=== PATIENT | male | born 1940 ===

== ENCOUNTER 2023-06-30 06:06 | Inpatient (IN) | payer OTHER ==
--- OUTSIDE RECORDS SUMMARY | 2023-06-30 06:09 | XMS REPORT | Continuity of Care Document ---
Author Name Unknown Address [address] [facility] [address] [place] [address] [facility] thconnect Address [address] [facility] [address] [place] [address] Care Team Providers Care Legal Administrative Assistant Name Role Phone Crescencio Mac Attending Clinician Unavailable Payers Payer Name Policy Type Policy Number Effective Date Expirati on Date Source [facility] [employer] TRS/ERS MCR PPO 1 [id number] [facility] Problems Condition Name Condition Details Condition Category Status Onset Date Resolution Date Last Treatment Date Treating Clinician Comments Source [id number] COPD, mild Problem Com mon [facility] [id number] History of prostate cancer Problem [facility] [id number] Essential hypertensi on Problem [facility] [id number] Obesity, Class II, BMI 35-39.9 Problem [facility] [id number] Mild episode of recurrent major depressive disorder Problem [facility] [id number] Slow transit constipati on Problem [facility] [id number] Mixed hyperlipid emia Problem [facility] [id number] Complete tear of left rotator cuff, unspecifie d whether traumatic Problem [facility] Social History Social Habit Start Date Stop Date Quantity Comments Source History of Tobacco Use [facility] Sex Assigned At [facility] Smoking Status Start Date Stop Date Source Never Smoker [facility] Medications Ordered Medication Name Filled Medication Name Start Date Stop Date Current Medication? Ordering Clinician Indication Dosage Frequency Signature (SIG) Comments Components Source Albuterol Sulfate HFA Albuterol Sulfate HFA No Albuterol Sulfate HFA Stool Softener Stool Softener No Stool Softener Magnesium Magnesium No Magnesium Niacin Niacin No Niacin Allergy Allergy No Allergy Lisinopril 40 MG Lisinopril 40 MG No 1{table t} QD Lisinopril 40 MG Simvastatin 40 MG Simvastatin 40 MG No 1{table t_in e_eveni ng} QD Simvastati n 40 MG DULoxetine HCl 30 MG DULoxetine HCl 30 MG No 1{capsu le} QD DULoxetine HCl 30 MG Vaishali Aspirin Vaishali Aspirin No Vaishali Aspirin Symbicort Symbicort No Symbicort Melatonin Melatonin No Melatonin hydroCHLORO thiazide 50 MG hydroCHLORO thiazide 50 MG No hydroCHLOR Othiazide 50 MG DULoxetine HCl 30 MG DULoxetine HCl 30 MG No 1{capsu le} QD DULoxetine HCl 30 MG Albuterol Sulfate HFA Albuterol Sulfate HFA No Albuterol Sulfate HFA hydroCHLORO thiazide 50 MG hydroCHLORO thiazide 50 MG No 1{capsu le_in_t he_morn ing} QD hydroCHLOR Othiazide 50 MG Niacin Niacin No Niacin Stool Softener Stool Softener No Stool Softener Magnesium Magnesium No Magnesium Lisinopril 40 MG Lisinopril 40 MG No 1{table t} QD Lisinopril 40 MG Simvastatin 40 MG Simvastatin 40 MG No 1{table t_in e_eveni ng} QD Simvastati n 40 MG DULoxetine HCl 30 MG DULoxetine HCl 30 MG No 1{capsu le} QD DULoxetine HCl 30 MG Vaishali Aspirin Vaishali Aspirin No Vaishali Aspirin Symbicort Symbicort No Symbicort Melatonin Melatonin No Melatonin Allergy Allergy No Allergy DULoxetine HCl 30 MG DULoxetine HCl 30 MG No 1{capsu le} QD DULoxetine HCl 30 MG Albuterol Sulfate HFA Albuterol Sulfate HFA No Albuterol Sulfate HFA hydroCHLORO thiazide 50 MG hydroCHLORO thiazide 50 MG No 1{capsu le_in_t he_morn ing} QD hydroCHLOR Othiazide 50 MG Niacin Niacin No Niacin Stool Softener Stool Softener No Stool Softener Magnesium Magnesium No Magnesium Lisinopril 40 MG Lisinopril 40 MG No 1{table t} QD Lisinopril 40 MG Simvastatin 40 MG Simvastatin 40 MG No 1{table t_in_th e_eveni ng} QD Simvastati n 40 MG DULoxetine HCl 30 MG DULoxetine HCl 30 MG No 1{capsu le} QD DULoxetine HCl 30 MG Vaishali Aspirin Vaishali Aspirin No Vaishali Aspirin Symbicort Symbicort No Symbicort Melatonin Melatonin No Melatonin Allergy Allergy No Allergy DULoxetine HCl 30 MG DULoxetine HCl 30 MG No 1{capsu le} QD DULoxetine HCl 30 MG Albuterol Sulfate HFA Albuterol Sulfate HFA No Albuterol Sulfate HFA hydroCHLORO thiazide 50 MG hydroCHLORO thiazide 50 MG No 1{capsu le_in_t he_morn ing} QD hydroCHLOR Othiazide 50 MG Niacin Niacin No Niacin Stool Softener Stool Softener No Stool Softener Magnesium Magnesium No Magnesium Lisinopril 40 MG Lisinopril 40 MG No 1{table t} QD Lisinopril 40 MG Simvastatin 40 MG Simvastatin 40 MG No 1{table t_in_th e_eveni ng} QD Simvastati n 40 MG DULoxetine HCl 30 MG DULoxetine HCl 30 MG No 1{capsu le} QD DULoxetine HCl 30 MG Vaishali Aspirin Vaishali Aspirin No Vaishali Aspirin Symbicort Symbicort No Symbicort Melatonin Melatonin No Melatonin Allergy Allergy No Allergy DULoxetine HCl 30 MG DULoxetine HCl 30 MG No 1{capsu le} QD DULoxetine HCl 30 MG Vital Signs Vital Name Observation Time Observation Value Comments S ource respiratory rate 2023-04-07 13:40:00 16 /min [facility] blood pressure systolic 2023-04-07 13:40:00 136 mm[Hg] [facility] blood pressure diastolic 2023-04-07 13:40:00 74 mm[Hg] [facility] height 2023-04-07 13:40:00 69.5 [in_i] Comm on [facility] weight 2023-04-07 13:40:00 249.6 [lb_av] Co mmon [facility] temperature 2023-04-07 13:40:00 98.2 [degF] Com mon [facility] bmi 2023-04-07 13:40:00 36.33 kg/m2 Comm on [facility] oximetry 2023-04-07 13:40:00 97 % Commo n [facility] height 2023-03-08 11:00:00 69.5 [in_i] Comm on [facility] weight 2023-03-08 11:00:00 247 [lb_av] Comm on [facility] temperature 2023-03-08 11:00:00 97.2 [degF] Com mon [facility] bmi 2023-03-08 11:00:00 35.95 kg/m2 Comm on [facility] oximetry 2023-03-08 11:00:00 97 % Commo n [facility] respiratory rate 2023-03-08 11:00:00 16 /min [facility] blood pressure systolic 2023-03-08 11:00:00 134 mm[Hg] [facility] blood pressure diastolic 2023-03-08 11:00:00 66 mm[Hg] [facility] blood pressure diastolic 2023-03-08 11:00:00 66 mm[Hg] [facility] height 2023-03-08 11:00:00 69.5 [in_i] Comm on [facility] weight 2023-03-08 11:00:00 247 [lb_av] Comm on [facility] temperature 2023-03-08 11:00:00 97.2 [degF] Com [facility] bmi 2023-03-08 11:00:00 35.95 kg/m2 Comm on [facility] oximetry 2023-03-08 11:00:00 97 % Commo n [facility] respiratory rate 2023-03-08 11:00:00 16 /min [facility] blood pressure systolic 2023-03-08 11:00:00 134 mm[Hg] Common Spiri t - [facility] Encounters Start Date/Time End Date/Time Encounter Type Admission Type Attending Clinicians Care Facility Care Department Encounter ID Source 2023-06-28 12:01:00 Out[facility] [id number] [facility] 2023-04-06 13:20:00 [facility] [id number] [facility] 2023-04-05 09:01:01 [facility] [id number] [facility] 2023-03-08 09:45:01 [facility] [id number] [facility] 2023-06-07 00:00:00 2023-06-07 00:00:00 [facility] [id number] [facility] 2023-04-07 00:00:00 2023-04-07 00:00:00 OFFICE VISIT ESTAB PT LEVEL 4 [facility] [id number] [facility] 2023-03-08 00:00:00 2023-03-08 00:00:00 OFFICE VISIT NEW PT LEVEL 4 [facility] [id number] [facility] 2023-03-08 00:00:00 2023-03-08 00:00:00 SUB ANNUAL [facility] [id number] [facility] Results Test Description Test Time Test Comments Results Result Co mments Source LIPID [id number] 00:00:00* Test Item Value Reference Range Interpretation Comme nts CALC LDL CHOL (test code = 83131-7) 95 MG/DL See_Comment [Automated [employer]] The system which generated this result transmitted reference range: <100 MG/DL. The reference range was not used to interpret this result as normal/abnormal. CHOLESTEROL (test code = 2093-3) 156 MG/DL See_Comment [Automated [employer]] The system which generated this result transmitted reference range: <200 MG/DL. The reference range was not used to interpret this result as normal/abnormal. HDL CHOLESTEROL (test code = 2085-9) 41 MG/DL See_Comment [Automated [employer]] The system which generated this result transmitted reference range: >39 MG/DL. The reference range was not used to interpret this result as normal/abnormal. RISK RATIO LDL/HDL (test code = 72537-8) 2.32 RATIO See_Comment [Automated message] The system which generated this result transmitted reference range: <3.55 RATIO. The reference range was not used to interpret this result as normal/abnormal. TRIGLYCERIDES (test code = 2571-8) 100 MG/DL See_Comment [Automated [employer]] The system which generated this result transmitted reference range: <150 MG/DL. The reference range was not used to interpret this result as normal/abnormal. ALBUMIN/CREATININE RATIO, RANDOM [id number] 00:00:00* Test Item Value Reference Range Interpretation Comme nts ALBUMIN, URINE, RANDOM (test code = 83551-0) <0.2 MG/DL NOT ESTAB MG/DL CALC ALBUMIN/CREAT, RND (test code = 96454-8) <2 MG/G See_Comment [Automated [employer]] The system which generated this result transmitted reference range: <30 MG/G. The reference range was not used to interpret this result as normal/abnormal. CREATININE, URINE, CONC. (test code = 2161-8) 106.5 MG/DL NOT ESTAB MG/DL COMPREHENSIVE METABOLIC [id number] 00:00:00* Test Item Value Reference Range Interpretation Comme nts ALBUMIN (test code = 1751-7) 4.4 G/DL See_Comment [Automated [employer]] The system which generated this result transmitted reference range: 3.5-5.2 G/DL. The reference range was not used to interpret this result as normal/abnormal. ALKALINE PHOSPHATASE (test code = 6768-6) 62 U/L See_Comment [Automated message] The system which generated this result transmitted reference range: 40-125 U/L. The reference range was not used to interpret this result as normal/abnormal. BILIRUBIN, TOTAL (test code = 1975-2) 0.4 MG/DL See_Comment [Automated message] The system which generated this result transmitted reference range: <=1.2 MG/DL. The reference range was not used to interpret this result as normal/abnormal. BUN (test code = 3094-0) 12 MG/DL See_Comment [Automated messa ge] The system which generated this result transmitted reference range: 8-23 MG/DL. The reference range was not used to interpret this result as normal/abnormal. CALCIUM (test code = 41855-8) 9.8 MG/DL See_Comment [Automated messa ge] The system which generated this result transmitted reference range: 8.5-10.5 MG/DL. The reference range was not used to interpret this result as normal/abnormal. CALC A/G RATIO (test code = 1759-0) 1.8 RATIO See_Comment [Automated messa ge] The system which generated this result transmitted reference range: 1.0-2.6 RATIO. The reference range was not used to interpret this result as normal/abnormal. CALC BUN/CREAT (test code = 3097-3) 12 RATIO See_Comment [Automated messa ge] The system which generated this result transmitted reference range: 6-28 RATIO. The reference range was not used to interpret this result as normal/abnormal. CALC GLOBULIN (test code = 11991-5) 2.5 G/DL See_Comment [Automated messa ge] The system which generated this result transmitted reference range: 1.9-3.7 G/DL. The reference range was not used to interpret this result as normal/abnormal. CARBON DIOXIDE (test code = 1963-8) 28 MEQ/L See_Comment [Automated messa ge] The system which generated this result transmitted reference range: 19-31 MEQ/L. The reference range was not used to interpret this result as normal/abnormal. CHLORIDE (test code = 2075-0) 100 MEQ/L See_Comment [Automated messa ge] The system which generated this result transmitted reference range: 95-107 MEQ/L. The reference range was not used to interpret this result as normal/abnormal. CREATININE (test code = 2160-0) 1.00 MG/DL See_Comment [Automated messa ge] The system which generated this result transmitted reference range: 0.80-1.40 MG/DL. The reference range was not used to interpret this result as normal/abnormal. eGFR (2020 CKD-EPI) (test code = 60245-6) 76 ML/MIN/1.73 See_Comment [Automated messa ge] The system which generated this result transmitted reference range: >60 ML/MIN/1.73. The reference range was not used to interpret this result as normal/abnormal. GLUCOSE (test code = 1558-6) 113 MG/DL See_Comment H [Automated messa ge] The system which generated this result transmitted reference range: 70-99 MG/DL. The reference range was not used to interpret this result as normal/abnormal. POTASSIUM (test code = 2823-3) 4.4 MEQ/L See_Comment [Automated messa ge] The system which generated this result transmitted reference range: 3.5-5.4 MEQ/L. The reference range was not used to interpret this result as normal/abnormal. PROTEIN, TOTAL (test code = 2885-2) 6.9 G/DL See_Comment [Automated messa ge] The system which generated this result transmitted reference range: 6.1-8.3 G/DL. The reference range was not used to interpret this result as normal/abnormal. AST (test code = 1920-8) 19 U/L See_Comment [Automated messa ge] The system which generated this result transmitted reference range: 9-50 U/L. The reference range was not used to interpret this result as normal/abnormal. ALT (test code = 1742-6) 17 U/L See_Comment [Automated messa ge] The system which generated this result transmitted reference range: 5-50 U/L. The reference range was not used to interpret this result as normal/abnormal. SODIUM (test code = 2951-2) 141 MEQ/L See_Comment [Automated messa ge] The system which generated this result transmitted reference range: 133-146 MEQ/L. The reference range was not used to interpret this result as normal/abnormal.
[2023-06-30] MEDS ORDERED: ONDANSETRON 4 MG/2 ML VIAL ONE (06:30)
[2023-06-30 06:54] LABS: Absolute Basophils 0.1 K/uL (0-0.5); Absolute Lymphocytes (CBC) 2.1 K/uL (0.7-4.9); Basophils % 0.3 % (0-1.3); Eosinophils % 0.1 % (0-4.4); Hematocrit 44.6 % (39.6-49.0); Lymphocytes % 12.2 % (15.3-44.8); MCV 93.8 fL (80-100); MPV 8.2 fL (7.6-11.3); Platelets 233 thou/uL (152-406); RBC Red Blood Cell Count 4.75 M/uL (4.33-5.43)
[2023-06-30 07:08] LABS: Protime INR 0.97
[2023-06-30] MEDS ORDERED: METOCLOPRAMIDE 10 MG/2mL INJ ONE (07:09)
[2023-06-30] MEDS ORDERED: MORPHINE 4 MG/ML SYR ONE ×3 (07:09→13:23)
[2023-06-30] MEDS ORDERED: NA CHLORIDE 0.9% 1,000 ML ONE ×2 (07:10→17:37)
[2023-06-30] MEDS ORDERED: FAMOTIDINE 20 MG/2 ML VIAL IV ONE (07:10)
[2023-06-30 07:14] LABS: Albumin 3.8 g/dL (3.4-5.0); Albumin/Globulin Ratio 1.1 (1.1-1.8); Anion Gap 11.6 mEq/L (5.0-15.0); Bilirubin Direct 0.2 mg/dL (0-0.2); Bilirubin Indirect, Calculated 0.3 mg/dL (0.2-0.8); Bilirubin Total 0.5 mg/dL (0.2-1.0); Globulin 3.5 g/dL (2.3-3.5); Magnesium 2.5 mg/dL (1.6-2.4); Potassium 3.6 mEq/L (3.5-5.1); Protein, Total 7.3 g/dL (6.4-8.2); Troponin High Sensitivity 22.7 pg/mL (<58.9)
--- NOTE | 2023-06-30 07:53 | RAD REPORT ---
EXAM DESCRIPTION: Yuan Single View06/30/2023 6:50 am CLINICAL HISTORY: Chest pain COMPARISON: none FINDINGS: The lungs appear clear of acute infiltrate. The heart is normal size IMPRESSION: No acute abnormalities displayed
--- NOTE | 2023-06-30 08:01 | RAD REPORT ---
EXAM DESCRIPTION: CT - Chest Abdomen Pelvis W Cont - 06/30/2023 7:39 am CLINICAL HISTORY: Chest and abdominal pain COMPARISON: none TECHNIQUE: Computed axial tomography of the chest, abdomen and pelvis was obtained. 100 cc Isovue-30 0 was administered intravenously. Oral contrast was not requested. This limits evaluation of bowel. All CT scans are performed using dose optimization technique as appropriate and may include automated exposure control or mA/KV adjustment according to patient size. FINDINGS: The lungs are clear No mediastinal or hilar lymphadenopathy. No pleural effusion. No pericardial effusion. Pancreas is normal size. Moderate peripancreatic stranding with small amount of ill-defined fluid ext extending into the left anterior pararenal space. No pseudocysts. No evidence of diverticulitis normal appendix. Left hip prosthesis. Penile implant. IMPRESSION: Moderate pancreatitis
--- NOTE | 2023-06-30 08:12 | ER ---
Nurse's Notes [facility] Name: Elpidio Wong Age: 82 yrs Sex: Male : 1940 Arrival Date: 06/30/2023 Time: 06:06 Bed 4 Private MD: Diagnosis: Acute pancreatitis without necrosis or infection, unspecified Presentation: 06/29 06:45 Chief complaint: Patient states: I couldn't sleep on my back last night, my stomach vc1 hurts and I'm nauseous. I've had the hiccups and I'm constipated. My stomach is swollen and sticking out. Coronavirus screen: Vaccine status: Patient reports receiving the 2nd dose of the covid vaccine. Client denies travel out of the [place] in the last 14 days. At this time, the client does not indicate any symptoms associated with coronavirus-19. Ebola Screen: Patient negative for fever greater than or equal to 101.5 degrees Fahrenheit, and additional compatible Ebola Virus Disease symptoms Patient denies exposure to infectious person. Patient denies travel to an Ebola-affected area in the 21 days before illness onset. No symptoms or risks identified at this time. Initial Sepsis Screen: Does the patient meet any 2 criteria? No. Patient's initial sepsis screen is negative. Does the patient have a suspected source of infection? No. Patient's initial sepsis screen is negative. Risk Assessment: Do you want to hurt yourself or someone else? Patient reports no desire to harm self or others. Onset of symptoms was June 29, 2023. 06:45 Method Of Arrival: Ambulatory vc1 06:45 Acuity: RHODA 3 vc1 Triage Assessment: 06:56 General: Appears in no apparent distress. uncomfortable, Behavior is calm, cooperative, vc1 appropriate for age. Pain: Complains of pain in abdomen Pain does not radiate. Pain currently is 7 out of 10 on a pain scale. Quality of pain is described as pressure, Pain began suddenly, Is continuous, Noted to be guarding, resistant to movement, Also complains of constipation, nausea. EENT: No deficits noted. No signs and/or symptoms were reported regarding the EENT system. Neuro: Level of Consciousness is awake, alert, obeys commands, Oriented to person, place, time, situation, Appropriate for age. Cardiovascular: No deficits noted. Respiratory: Airway is patent Respiratory effort is even, unlabored, Respiratory pattern is regular, symmetrical, Breath sounds are clear. GI: Abdomen is round distended, Bowel sounds present X 4 quads. hypoactive in right upper quadrant, left upper quadrant, right lower quadrant and left lower quadrant Abd is soft Abdomen is tender to palpation X 4 quads. GI: Patient currently denies vomiting. : No deficits noted. No signs and/or symptoms were reported regarding the genitourinary system. :. Derm: No deficits noted. No signs and/or symptoms reported regarding the dermatologic system. Musculoskeletal: No deficits noted. No signs and/or symptoms reported regarding the musculoskeletal system. Historical: - Allergies: 07:52 Dilaudid; kc6 - Home Meds: 06:49 Hydrochlorothiazide Oral [Active]; Lisinopril Oral [Active]; Simvastatin Oral [Active]; vc1 2 inhalers [Active]; - PMHx: 06:49 Hypertensive disorder; Hypercholesterolemia; Chronic obstructive lung disease; Sleep vc1 apnea; - PSHx: 06:49 Radical Prostatectomy; Total right knee replacement; Left hip replacement; vc1 - Immunization history:: Client reports receiving the 2nd dose of the Covid vaccine, Pneumococcal vaccine is up to date, Flu vaccine is up to date. - Social history:: Smoking status: Patient/guardian denies using tobacco, but has a distant history of tobacco abuse. - Family history:: not pertinent. Screenin:49 Abuse screen: Denies threats or abuse. Denies injuries from another. Nutritional ha1 screening: No deficits noted. Tuberculosis screening: No symptoms or risk factors identified. 06:56 [facility] ED Fall Risk Assessment (Adult) History of falling in the last 3 months, vc1 including since admission No falls in past 3 months (0 pts) Confusion or Disorientation No (0 pts) Intoxicated or Sedated No (0 pts) Impaired Gait No (0 pts) Mobility Assist Device Used No (0 pt) Altered Elimination No (0 pt) Score/Fall Risk Level 0 - 2 = Low Risk Oriented to surroundings, Maintained a safe environment, Educated pt \T\ family on fall prevention, incl call for assistance when getting out of bed. Assessment: 06:28 General: Appears uncomfortable, Behavior is cooperative, anxious. Pain: Complains of ha1 pain in abdomen Pain does not radiate. Pain currently is 8 out of 10 on a pain scale. Quality of pain is described as throbbing. Neuro: Level of Consciousness is awake, alert, obeys commands, Oriented to person, place, time, situation. Cardiovascular: Capillary refill < 3 seconds Patient's skin is warm and dry. Respiratory: Airway is patent Respiratory effort is even, unlabored, Respiratory pattern is regular, symmetrical. GI: Bowel sounds present X 4 quads. Abdomen is tender to palpation in umbilical area. GI: Reports lower abdominal pain, upper abdominal pain, epigastric pain, nausea, vomiting. Derm: Skin is pink, warm \T\ dry. Musculoskeletal: Circulation, motion, and sensation intact. 07:23 General: Appears in no apparent distress. uncomfortable, well groomed, well developed, kc6 Behavior is calm, cooperative, appropriate for age. Pain: Complains of pain in abdomen. Neuro: Level of Consciousness is awake, alert, obeys commands, Oriented to person, place, time, situation, Appropriate for age. Cardiovascular: Capillary refill < 3 seconds. Respiratory: Airway is patent Trachea midline Respiratory effort is even, unlabored, Respiratory pattern is regular, symmetrical. GI: Abdomen is round non-distended, Bowel sounds present X 4 quads. Abd is soft X 4 quads Reports nausea, vomiting, Patient currently denies diarrhea. : No signs and/or symptoms were reported regarding the genitourinary system. EENT: No signs and/or symptoms were reported regarding the EENT system. Derm: No signs and/or symptoms reported regarding the dermatologic system. Skin is intact, is healthy with good turgor, Skin is pink, warm \T\ dry. Musculoskeletal: No signs and/or symptoms reported regarding the musculoskeletal system. Circulation, motion, and sensation intact. Capillary refill < 3 seconds, Range of motion: intact in all extremities. 08:23 Reassessment: Patient appears in no apparent distress at this time. No changes from kc6 previously documented assessment. Patient and/or family updated on plan of care and expected duration. Pain level reassessed. Patient is alert, oriented x 3, equal unlabored respirations, skin warm/dry/pink. 09:23 Reassessment: Patient appears in no apparent distress at this time. No changes from kc6 previously documented assessment. Patient and/or family updated on plan of care and expected duration. Pain level reassessed. Patient is alert, oriented x 3, equal unlabored respirations, skin warm/dry/pink. 10:23 Reassessment: Patient appears in no apparent distress at this time. No changes from kc6 previously documented assessment. Patient and/or family updated on plan of care and expected duration. Pain level reassessed. Patient is alert, oriented x 3, equal unlabored respirations, skin warm/dry/pink. please see [facility] for further charting. Vital Signs: 06:45 BP 175 / 68; Pulse 60; Resp 18; Temp 98; Pulse Ox 98% ; Weight 113.4 kg; Height 5 ft. 9 vc1 in. ; Pain 7/10; 07:24 BP 174 / 57; Pulse 55; Resp 16 S; Pulse Ox 98% on R/A; kc6 07:53 BP 171 / 64; Pulse 58; Resp 16 S; Pulse Ox 97% on R/A; Pain 9/10; kc6 08:53 BP 143 / 54; Pulse 55; Resp 17 S; Pulse Ox 95% on R/A; kc6 10:58 BP 162 / 57; Pulse 62; Resp 16 S; Pulse Ox 95% on R/A; kc6 19:53 BP 169 / 76; Pulse 85; Resp 17; Pulse Ox 93% ; jj7 06:45 Body Mass Index 36.92 (113.40 kg, 175.26 cm) vc1 06:45 Pain Scale: Adult vc1 07:53 Pain Scale: Adult kc6 Kylie Coma Score: 06:53 Eye Response: spontaneous(4). Motor Response: obeys commands(6). Verbal Response: sp4 oriented(5). Total: 15. ED Course: 06:11 Patient arrived in ED. gm2 06:20 Sarthak Vaughan MD is Attending Physician. sp4 06:40 Inserted saline lock: 20 gauge in right antecubital area, using aseptic technique. ha1 Blood collected. 06:49 Triage completed. vc1 06:51 XRAY Chest (1 view) In Process Unspecified. EDMS 06:55 Arm band placed on left wrist. vc1 06:55 Patient has correct armband on for positive identification. Bed in low position. Call vc1 light in reach. Pulse ox on. NIBP on. 07:00 Report received from ELSA Flannery. kc6 07:01 Attending Physician role handed off by Sarthak Vaughan MD ec2 07:01 Alonzo Moreira MD is Attending Physician. ec2 07:22 Shala Biggs RN is Primary Nurse. kc6 07:41 CT Chest, Abdomen, Pelvis - W/Contrast In Process Unspecified. EDMS 08:11 Stormy Garcia MD is Hospitalizing Provider. ec2 10:18 Urine collected: clean catch specimen, clear. jg11 10:59 No provider procedures requiring assistance completed. Patient admitted, IV remains in kc6 place. Patient maintains SpO2 saturation greater than 95% on room air. 20:14 Primary Nurse role handed off by Shala Biggs RN cm10 21:00 Provided Education on: need for admission. tm6 Administered Medications: 06:38 Drug: Ondansetron IVP 4 mg IVP once; over 2 minutes Route: IVP; Site: right antecubital;ha1 07:00 Follow up: Response: No adverse reaction; Nausea unchanged [facility] 07:22 Drug: morphine IVP or IV 4 mg IVP once over 4 mins Route: IVP; Infused Over: 4 mins; [facility] Site: right forearm; 07:44 Follow up: Response: No adverse reaction; Pain is unchanged, physician notified; RASS: [facility] Alert and Calm (0) 07:22 Drug: metoCLOPramide IVP 10 mg IVP once; over 1 to 2 minutes Route: IVP; Site: right kc6 forearm; 07:44 Follow up: Response: No adverse reaction; Nausea is decreased; Vomiting decreased [facility] 07:23 Drug: NS 0.9% IV 1000 ml IV at 125 ml/hr continuous Route: IV; Rate: 125 ml/hr; Site: [facility] right forearm; 10:58 Follow up: Response: No adverse reaction; IV Status: Infusion continued upon admission [facility] 07:23 Drug: Famotidine IVP 20 mg IVP once; dilute with 10 mL 0.9% NaCl; give over 2 minutes [facility] Route: IVP; Site: right forearm; 07:44 Follow up: Response: No adverse reaction [facility] 07:52 Drug: morphine IVP or IV 8 mg IVP once over 4 mins Route: IVP; Infused Over: 4 mins; [facility] Site: right forearm; 08:54 Follow up: Response: No adverse reaction; Pain is decreased; RASS: Alert and Calm (0) kc6 Medication: 06:55 VIS not applicable for this client. vc1 Outcome: 08:12 Decision to Hospitalize by Provider. ec2 10:59 Admitted to ER Hold. Please see [facility] for further documentation. kc6 10:59 Condition: good 10:59 Instructed on the need for admit, 20:09 Admitted to Med/surg accompanied by tech, room 225, Report called to MARILU HUNTER jj7 21:00 Patient left the ED. tm6 Signatures: Dispatcher [employer] Ana Lilia Ceballos RN RN vc1 Love Bryant RN RN ha1 Shala Biggs RN RN kc6 Anika Stephenson RN RN jj7 Sarthak Vaughan MD MD sp4 Noy Raphael RN RN cm10 Alonzo Moreira MD MD ec2 Lakeshia Garcia gm2 Lashae Rosas RN RN tm6 Christian Moreira [email or web address] Corrections: (The following items were deleted from the chart) 06:55 06:49 PSHx: total left knee replacement; vc1 vc1 07:52 06:49 Allergies: No Known Allergies; vc1 kc6
--- NOTE | 2023-06-30 08:12 | EDPHYS ---
Physician Documentation [facility] Name: Elpidio Wong Age: 82 yrs Sex: Male : 1940 Arrival Date: 06/30/2023 Time: 06:06 Bed 4 Private MD: ED Physician Alonzo Moreira HPI: 06/29 06:20 This 82 yrs old Male presents to ER via Unassigned with complaints of sp4 Abdominal Pain, Nausea/Vomiting, PT IS VERY RED FACE. 06:53 82-year-old male presents with acute onset of nausea and upper abdominal pain in sp4 epigastric location that woke him up from his sleep 2 hours ago. Patient states he has history of radical prostatectomy. Denied any vomiting. Reported moderate to severe upper abdominal epigastric pain. Reports he drinks alcohol up to 4 beers a day. History of COPD on albuterol inhaler, history of CPAP with obstructive sleep apnea, history of hypertension on hydrochlorothiazide lisinopril and Crestor. History of right knee replacement , and left hip arthroplasty. Historical: - Allergies: 07:52 Dilaudid; kc6 - Home Meds: 06:49 Hydrochlorothiazide Oral [Active]; Lisinopril Oral [Active]; Simvastatin Oral [Active]; vc1 2 inhalers [Active]; - PMHx: 06:49 Hypertensive disorder; Hypercholesterolemia; Chronic obstructive lung disease; Sleep vc1 apnea; - PSHx: 06:49 Radical Prostatectomy; Total right knee replacement; Left hip replacement; vc1 - Immunization history:: Client reports receiving the 2nd dose of the Covid vaccine, Pneumococcal vaccine is up to date, Flu vaccine is up to date. - Social history:: Smoking status: Patient/guardian denies using tobacco, but has a distant history of tobacco abuse. - Family history:: not pertinent. ROS: 06:53 Constitutional: Negative for fever, chills, and weight loss, presented for abdominal sp4 pain and nausea 06:53 All other systems are negative, Exam: 06:53 Constitutional: This is a well developed, well nourished patient who is awake, alert, sp4 healthy moderate distress secondary to pain Head/Face: Normocephalic, atraumatic. Eyes: Pupils equal round and reactive to light, extra-ocular motions intact. Lids and lashes normal. Conjunctiva and sclera are not injected. Cornea within normal limits. Periorbital areas with no swelling, redness, or edema. ENT: Nares patent. No nasal discharge, no septal abnormalities noted. Tympanic membranes are normal and external auditory canals are clear. Oropharynx with no redness, swelling, or masses, exudates, or evidence of obstruction, uvula midline. Mucous membranes moist. Neck: Trachea midline, no thyromegaly or masses palpated, and no cervical lymphadenopathy. Supple, full range of motion without nuchal rigidity, or vertebral point tenderness. Chest/axilla: Normal chest wall appearance and motion. Nontender with no deformity. No lesions are appreciated. Cardiovascular: Regular rate and rhythm with a normal S1 and S2. No gallops, murmurs, or rubs. Normal PMI, no JVD. No pulse deficits. Respiratory: Lungs have equal breath sounds bilaterally, clear to auscultation and percussion. No rales, rhonchi or wheezes noted. No increased work of breathing, no retractions or nasal flaring. Abdomen/GI: Soft, with normal bowel sounds. No distension or tympany. No guarding or rebound. Acute upper abdominal tenderness. Positive rebound. Back: No spinal tenderness. No costovertebral tenderness. Skin: Warm, dry with normal turgor. Normal color with no rashes, no lesions, and no evidence of cellulitis. MS/ Extremity: Pulses equal, no cyanosis. Neurovascular intact. Full, normal range of motion. Neuro: Awake and alert, GCS 15, oriented to person, place, time, and situation. Cranial nerves II-XII grossly intact. Motor strength 5/5 in all extremities. Sensory grossly intact. Psych: Awake, alert, with orientation to person, place and time. Behavior, mood, and affect are within normal limits Vital Signs: 06:45 BP 175 / 68; Pulse 60; Resp 18; Temp 98; Pulse Ox 98% ; Weight 113.4 kg; Height 5 ft. 9 vc1 in. ; Pain 7/10; 07:24 BP 174 / 57; Pulse 55; Resp 16 S; Pulse Ox 98% on R/A; kc6 07:53 BP 171 / 64; Pulse 58; Resp 16 S; Pulse Ox 97% on R/A; Pain 9/10; kc6 08:53 BP 143 / 54; Pulse 55; Resp 17 S; Pulse Ox 95% on R/A; kc6 10:58 BP 162 / 57; Pulse 62; Resp 16 S; Pulse Ox 95% on R/A; kc6 19:53 BP 169 / 76; Pulse 85; Resp 17; Pulse Ox 93% ; jj7 06:45 Body Mass Index 36.92 (113.40 kg, 175.26 cm) vc1 06:45 Pain Scale: Adult vc1 07:53 Pain Scale: Adult kc6 Kylie Coma Score: 06:53 Eye Response: spontaneous(4). Motor Response: obeys commands(6). Verbal Response: sp4 oriented(5). Total: 15. MDM: 06:22 Patient medically screened. sp4 06:58 Differential diagnosis: Nonspecific abd pain, gastritis, cholecystitis, pancreatitis, sp4 appendicitis, diverticulitis, viral gastroenteritis, gastroenteritis. Data reviewed: vital signs, nurses notes, old medical records, lab test result(s), EKG, radiologic studies. ED course: Patient was given medications for pain control. CT ordered . 07:00 Transition of care: After a detail discussion of the patient's case, care is sp4 transferred to Alonzo Moreira MD. 07:01 Transition of care: Care assumed from Sarthak Vaughan MD. ED course: Patient arrives ec2 today for upper abdominal pain, patient send operative intervention, plan to follow-up lab work and CT imaging.. 07:21 ED course: Metabolic profile is reassuring, CBC shows leukocytosis 17.2. Liver profile ec2 unremarkable, lipase elevation at 1200. Troponin within normal ranges. . 08:11 ED course: Chest x-ray shows no acute intrathoracic process. CT imaging shows ec2 pancreatitis. CRP within normal ranges, alcohol undetectable. Will admit for pancreatitis, pain management. Discussed case with hospitalist, pending admission . 06/29 06:21 Order name: Basic Metabolic Panel; Complete Time: 07:20 sp4 06/29 06:21 Order name: CBC with Diff; Complete Time: 07:20 sp4 06/29 06:21 Order name: LFT's; Complete Time: 07:20 sp4 06/29 06:21 Order name: Magnesium; Complete Time: 07:20 sp4 06/29 06:21 Order name: NT PRO-BNP; Complete Time: 07:20 sp4 06/29 06:21 Order name: PT-INR; Complete Time: 07:20 sp4 06/29 06:21 Order name: Troponin HS; Complete Time: 07:20 sp4 06/29 06:21 Order name: Lipase; Complete Time: 07:20 sp4 06/29 06:50 Order name: CRP; Complete Time: 08:10 sp4 06/29 06:50 Order name: Urinalysis w/ reflexes sp4 06/29 06:50 Order name: Alcohol Level; Complete Time: 08:10 sp4 06/29 10:19 Order name: Lipid Profile EDMS 03/07 10:19 Order name: Basic Metabolic Panel EDMS 03/07 10:19 Order name: Basic Metabolic Panel EDMS 03/07 10:19 Order name: Basic Metabolic Panel EDMS 03/07 10:19 Order name: Basic Metabolic Panel EDMS 03/07 10:19 Order name: Basic Metabolic Panel EDMS 03/07 10:19 Order name: Basic Metabolic Panel EDMS 03/07 10:19 Order name: CBC with Automated Diff EDMS 03/07 10:19 Order name: CBC with Automated Diff EDMS 03/07 10:19 Order name: CBC with Automated Diff EDMS 03/07 10:19 Order name: CBC with Automated Diff EDMS 03/07 10:19 Order name: CBC with Automated Diff EDMS 03/07 10:19 Order name: CBC with Automated Diff EDMS 03/07 10:19 Order name: Lipase EDMS 03/07 10:19 Order name: Lipase EDMS 03/07 10:19 Order name: Lipase EDMS 03/07 10:19 Order name: Lipase EDMS 03/07 10:19 Order name: Lipase EDMS 03/07 10:19 Order name: Lipase EDMS 03/07 10:19 Order name: Magnesium EDMS 03/07 10:19 Order name: Magnesium EDMS 03/07 10:19 Order name: Magnesium EDMS 03/07 10:19 Order name: Magnesium EDMS 03/07 10:19 Order name: Magnesium EDMS 03/07 10:19 Order name: Magnesium EDMS 03/07 10:19 Order name: NT PRO-BNP EDMS 03/07 10:19 Order name: NT PRO-BNP EDMS 03/07 10:19 Order name: NT PRO-BNP EDMS 03/07 10:19 Order name: NT PRO-BNP EDMS 03/07 10:19 Order name: NT PRO-BNP EDMS 06/29 10:19 Order name: NT PRO-BNP EDMS 06/29 06:21 Order name: XRAY Chest (1 view); Complete Time: 08:10 sp4 06/29 06:21 Order name: CT Chest, Abdomen, Pelvis - W/Contrast; Complete Time: 08:10 sp4 06/29 06:21 Order name: EKG; Complete Time: 06:21 sp4 06/29 06:21 Order name: Cardiac monitoring; Complete Time: 06:58 sp4 06/29 06:21 Order name: EKG - Nurse/Tech; Complete Time: 06:58 sp4 06/29 06:21 Order name: IV Saline Lock; Complete Time: 06:38 sp4 06/29 06:21 Order name: Labs collected and sent; Complete Time: 06:38 sp4 06/29 06:21 Order name: O2 Per Protocol; Complete Time: 06:38 sp4 06/29 06:21 Order name: O2 Sat Monitoring; Complete Time: 06:38 sp4 Administered Medications: 06:38 Drug: Ondansetron IVP 4 mg IVP once; over 2 minutes Route: IVP; Site: right antecubital;ha1 07:00 Follow up: Response: No adverse reaction; Nausea unchanged kc6 07:22 Drug: morphine IVP or IV 4 mg IVP once over 4 mins Route: IVP; Infused Over: 4 mins; kc6 Site: right forearm; 07:44 Follow up: Response: No adverse reaction; Pain is unchanged, physician notified; RASS: kc6 Alert and Calm (0) 07:22 Drug: metoCLOPramide IVP 10 mg IVP once; over 1 to 2 minutes Route: IVP; Site: right kc6 forearm; 07:44 Follow up: Response: No adverse reaction; Nausea is decreased; Vomiting decreased kc6 07:23 Drug: NS 0.9% IV 1000 ml IV at 125 ml/hr continuous Route: IV; Rate: 125 ml/hr; Site: kc6 right forearm; 10:58 Follow up: Response: No adverse reaction; IV Status: Infusion continued upon admission kc6 07:23 Drug: Famotidine IVP 20 mg IVP once; dilute with 10 mL 0.9% NaCl; give over 2 minutes kc6 Route: IVP; Site: right forearm; 07:44 Follow up: Response: No adverse reaction kc6 07:52 Drug: morphine IVP or IV 8 mg IVP once over 4 mins Route: IVP; Infused Over: 4 mins; kc6 Site: right forearm; 08:54 Follow up: Response: No adverse reaction; Pain is decreased; RASS: Alert and Calm (0) kc6 Disposition Summary: 06/30/23 08:12 Hospitalization Ordered Notes: Hospitalization Status: Inpatient Admission ec2 Provider: Stormy Garcia ec2 Condition: Stable ec2 Problem: new ec2 Symptoms: have improved ec2 Bed/Room Type: Standard ec2 Location: Telemetry/MedSurg (Inpatient)(06/30/23 18:40) Room Assignment: [facility](06/30/23 19:13) Diagnosis - Acute pancreatitis without necrosis or infection, unspecified ec2 Forms: - Medication Reconciliation Form ec2 - SBAR form ec2 - Leadership Thank You Letter ec2 Signatures: Dispatcher [employer] EDTianna Martinez RN RN Rachael Squires RN RN dw Calcote, Vanessa, RN RN 1 Love Bryant RN RN Shala Mahoney RN RN kc6 Sylvia Beverly RN RN [email or web address] Sarthak Vaughan MD MD sp4 Alonzo Moreira MD MD ec2 Corrections: (The following items were deleted from the chart) 06:55 06:49 PSHx: total left knee replacement; vc1 vc1 07:52 06:49 Allergies: No Known Allergies; vc1 kc6 10:39 08:12 Telemetry/MedSurg (Inpatient) ec2 kb3 10:39 08:12 ec2 kb3 18:40 10:39 [facility] ER HOLD kb3 dw 18:40 10:39 ERHOLD- kb3 dw 19:13 18:[address] [place] [id number]
[2023-06-30] MEDS: FOLIC ACID 1 MG, MULTIVITAMINS INJ 10 ML, THIAMINE HCL 100 MG in NA CHLORIDE 0.9% 1,000 ML IV SCH (09:00)
--- NOTE | 2023-06-30 09:04 | P.HP ---
Certification for Inpatient Patient admitted to: Observation With expected LOS: <2 Midnights <DivineBee - Last Filed: 06/30/23 18:42> Patient History Date of Service: 06/30/23 Reason for admission: Abdominal pain, nausea vomiting History of Present Illness: 82-year-old male with a past medical history of hypertension, hyperlipidemia, COPD, sleep apnea, presents to the emergency room with abdominal pain, nausea vomiting. He reports drinking about 6 or 7 beers daily, over the last year. He reports moderate amount of stress from moving. is at bedside, no reported fever, dizziness, edema, chest pain, shortness of breath. Plan to admit for alcohol acute pancreatitis, Home medications list reviewed: Yes - Past Medical/Surgical History -: Hypertension -: Hyperlipidemia -: Sleep apnea -: COPD -: Total knee replacement -: Radical prostatectomy -: Left hip replacement - Social History Smoking Status: Former smoker Alcohol use: Yes Place of Residence: Home <Bee Haskins - Last Filed: 06/30/23 18:42> Date of Service: 07/01/23 <Stormy Garcia - Last Filed: 07/01/23 13:10> Allergies hydromorphone [From Dilaudid] Adverse Reaction (Intermediate, Verified 06/30/23 10:47) HALLUCINATIONS Review of Systems Per HPI <Bee Haskins - Last Filed: 06/30/23 18:42> Physical Examination - Physical Exam General: Alert, In no apparent distress, Oriented x3 HEENT: Atraumatic, Normocephalic Neck: Supple, JVD not distended Cardiovascular: No edema, Normal pulses, Regular rate/rhythm Gastrointestinal: Normal bowel sounds, Tenderness (Epigastric, generalized abdominal tenderness, no rebound) Musculoskeletal: No clubbing, No swelling Integumentary: No breakdown, No significant lesion Neurological: Normal speech, Normal strength at 5/5 x4 extr Lymphatics: Axilla lymphadenopathy - Studies Laboratory Data (last 24 hrs) 06/30/23 06/30/23 06/30/23 06:45 06:45 06:45 WBC 17.20 H Hgb 15.2 Hct 44.6 Plt Count 233 PT 10.7 INR 0.97 Sodium 137 Potassium 3.6 BUN 24 H Creatinine 1.23 Glucose 138 H Magnesium 2.5 H Total Bilirubin 0.5 AST 14 L ALT 25 Alkaline Phosphatase 66 Lipase 1197 H <Bee Haskins - Last Filed: 06/30/23 18:42> Assessment and Plan - Plan Assessment plan Acute alcoholic pancreatitis Leukocytosis IV fluids, as needed analgesics, Trend lipase 1197 Lipid panel Elevated BNP BNP 604 Lasix ordered twice daily Daily BMP Acute kidney BUN 24 creatinine 1.23 IV fluids, monitor kidney function, gentle IV fluid EtOH use CIWA protocol, as needed Ativan Hypertension Hyperlipidemia Resume home medications, as needed antihypertensives BP 175 / 68; Pulse 60; Resp 18; Temp 98; Pulse Ox 98% ; Weight 113.4 kg; Height 5 ft. 9 v Full code Diet n.p.o. DVT Lovenox Disposition Home with spouse Discharge Plan: Home - Advance Directives Does patient have a Living Will: No Does patient have a Durable POA for Healthcare: No - Code Status/Comfort Care Code Status: Full Code Critical Care: No Time Spent Managing Pts Care (In Minutes): 55 <Bee Haskins - Last Filed: 06/30/23 18:42> Date of Service: 06/30/23 Patient chart was reviewed and patient was seen and examined. Patient with acute pancreatitis secondary to alcohol abuse. Continue with n.p.o. status along with IV fluids. Continue with Librium and pain control. Will monitor patient's hemodynamics closely. Strict blood pressure control. <Stormy Garcia - Last Filed: 07/01/23 13:10>
[2023-06-30] MEDS ORDERED: FLUMAZENIL 0.1 MG/ML (5 mL VIAL) IV PRN (09:06)
[2023-06-30] MEDS ORDERED: LORazepam 2 MG/ML VIAL IV PRN (09:08)
[2023-06-30] MEDS ORDERED: ONDANSETRON 4 MG/2 ML VIAL IV PRN (10:16)
[2023-06-30] MEDS ORDERED: ZOLPIDEM TARTRATE 5 MG TABLET PO PRN (10:16)
[2023-06-30] MEDS: NA CHLORIDE 0.9% 1,000 ML IV SCH (10:16)
[2023-06-30 10:24] LABS: Specific Gravity > 1.030 (1.005-1.030); Urine Bacteria None Seen /HPF (<20); Urine Bilirubin NEGATIVE (Negative); Urine Blood Negative (Negative); Urine Clarity Clear (Clear); Urine Color Colorless (Yellow); Urine Glucose NEGATIVE (Negative); Urine Protein NEGATIVE (Negative); Urine RBC <5 /HPF (None Seen); Urine Urobilinogen Normal (Normal); Urine pH 5.5 (5.0-7.0)
[2023-06-30] MEDS: MORPHINE 4 MG/ML SYR IV PRN (10:48)
[2023-06-30] MEDS: FUROSEMIDE 40 MG/4 ML VIAL IV SCH (10:50)
[2023-06-30] MEDS ORDERED: chlordiazePOXIDE HCl 5 MG CAP PO ONE (13:22)
[2023-06-30] MEDS: chlordiazePOXIDE HCl 5 MG CAP PO SCH (13:33)
[2023-06-30] MEDS ORDERED: FUROSEMIDE 40 MG/4 ML VIAL ONE (20:01)
[2023-06-30 22:36] VITALS: BMI 36.7
[2023-07-01] MEDS: LORAZEPAM 0.5 MG TABLET PO PRN (02:51)
[2023-07-01 03:58] LABS: Absolute Basophils 0.1 K/uL (0-0.5); Absolute Lymphocytes (CBC) 1.1 K/uL (0.7-4.9); Basophils % 0.3 % (0-1.3); Hematocrit 43.4 % (39.6-49.0); Lymphocytes % 4.4 % (15.3-44.8); MCV 93.3 fL (80-100); MPV 8.8 fL (7.6-11.3); Platelets 183 thou/uL (152-406); RBC Red Blood Cell Count 4.65 M/uL (4.33-5.43)
[2023-07-01 04:30] LABS: Anion Gap 10.1 mEq/L (5.0-15.0); Magnesium 2.1 mg/dL (1.6-2.4); Potassium 3.1 mEq/L (3.5-5.1)
[2023-07-01 05:07] LABS: Band Neutrophils 2 % (0-1); Blood Morphology Comment NOT SEEN (NOT SEEN); Platelet Estimate ADEQ
--- NOTE | 2023-07-01 07:40 | P.PN ---
Subjective Date of Service: 07/01/23 Chief Complaint: Abdominal pain, nausea vomiting Admitted with alcoholic pancreatitis, n.p.o. abdominal pain controlled with IV analgesia - Physical Exam General: Alert, In no apparent distress, Oriented x3 HEENT: Atraumatic, Normocephalic Neck: Supple, JVD not distended Cardiovascular: No edema, Normal pulses, Regular rate/rhythm Gastrointestinal: Normal bowel sounds, Tenderness (Epigastric, generalized abdominal tenderness, no rebound) Musculoskeletal: No clubbing, No swelling Integumentary: No breakdown, No significant lesion Neurological: Normal speech, Normal strength at 5/5 x4 extr Lymphatics: Axilla lymphadenopathy <Bee Haskins - Last Filed: 07/01/23 07:34> Date of Service: 07/01/23 <Stormy Garcia - Last Filed: 07/01/23 13:11> Review of Systems Per HPI <Bee Haskins - Last Filed: 07/01/23 07:34> Physical Examination - Vital Signs Temperature: 97.1 F Blood Pressure: 160/86 Pulse: 88 Respirations: 17 Pulse Ox (%): 97 - Studies Laboratory Data (last 24 hrs) 06/30/23 07:20 Triglycerides 133 Cholesterol 149 HDL Cholesterol 45 Cholesterol/HDL Ratio 3.31 <Bee Haskins - Last Filed: 07/01/23 07:34> Assessment And Plan - Plan Assessment plan Acute alcoholic pancreatitis Leukocytosis IV fluids, as needed analgesics, Trend lipase 1197, 1300 Lipid panel Leukocytosis 38 17.20 increased to 24.7 Zosyn added Elevated BNP BNP 604, 931 Lasix ordered twice daily Daily BNP Hypokalemia Trend electrolytes replace. Acute kidney improved BUN 24 creatinine 1.23 BUN 70 creatinine 19 IV fluids, monitor kidney function, gentle IV fluid EtOH use CIWA protocol, as needed Ativan Hypertension Hyperlipidemia Resume home medications, as needed antihypertensives BP 175 / 68; Pulse 60; Resp 18; Temp 98; Pulse Ox 98% ; Weight 113.4 kg; Height 5 ft. 9 v Full code Diet n.p.o. DVT Lovenox Disposition Home with spouse Discharge Plan: Home - Code Status/Comfort Care Code Status: Full Code Critical Care: No Time Spent Managing PTS Care (In Minutes): 35 <Bee Haskins - Last Filed: 07/01/23 07:34> Date of Service: 07/01/23 Patient is feeling much better. Patient seen and examined. Patient continues to improve. Will go ahead and advance him to a clear liquid diet and advance as tolerated. Repeat lipase level. Get an echocardiogram and check BNP level. Counseled patient regarding alcohol cessation. Patient is overall doing much better and anticipate discharge over the next 24 to 48 hours. <Stormy Garcia - Last Filed: 07/01/23 13:11>
[2023-07-01] MEDS: NA CHLORIDE 0.9% 1,000 ML IV SCH ×2 (08:00→10:07)
[2023-07-01] MEDS ORDERED: FUROSEMIDE 40 MG/4 ML VIAL IV SCH (09:00)
[2023-07-01] MEDS: PIPER TAZO 3.375 GM in NA CHLORIDE 0.9% 100 ML IV SCH (09:00)
[2023-07-01] MEDS: DULOXETINE 30 MG CAP PO SCH (09:04)
[2023-07-01] MEDS: POTASSIUM CL SA 10 MEQ TAB PO ONE (09:18)
[2023-07-01] MEDS: METOPROLOL TARTRATE 5 MG/5 ML INJ IV STA (12:31)
[2023-07-01] MEDS: METOPROLOL TAR 25 MG TAB PO ONE (13:28)
[2023-07-01] MEDS: AMLODIPINE 5 MG TAB PO ONE (13:28)
[2023-07-01 15:50] LABS: Absolute Basophils 0.1 K/uL (0-0.5); Absolute Lymphocytes (CBC) 0.9 K/uL (0.7-4.9); Basophils % 0.2 % (0-1.3); Hematocrit 41.4 % (39.6-49.0); Lymphocytes % 3.5 % (15.3-44.8); MCV 93.8 fL (80-100); MPV 7.9 fL (7.6-11.3); Platelets 172 thou/uL (152-406); RBC Red Blood Cell Count 4.41 M/uL (4.33-5.43)
[2023-07-01 16:12] LABS: Anion Gap 7.9 mEq/L (5.0-15.0); Potassium 2.9 mEq/L (3.5-5.1)
[2023-07-01] MEDS: CEFEPIME 2 GM in NA CHLORIDE 0.9% 100 ML IV SCH (17:06)
[2023-07-01] MEDS: METOPROLOL TAR 50 MG TAB PO SCH (17:06)
[2023-07-01] MEDS: KCL 20 MEQ/100 mL IVPB 20 MEQ/100 ML BAG IV SCH (19:45)
[2023-07-01] MEDS ORDERED: HOME MED 1 EA UNK (Simvastatin [Simvastatin] 40 MG Tablet) PO SCH (21:00)
[2023-07-01] MEDS ORDERED: HOME MED 1 EA UNK (Budesonide/Formoterol Fumarate [Symbicort 160-4.5 Mcg Inhaler] 10.2 GM IH SCH (21:00)
[2023-07-01] MEDS: ATORVASTATIN 20 MG TAB PO SCH (21:10)
[2023-07-01] MEDS: MELATONIN 5 MG TABLET PO SCH (21:10)
[2023-07-01] MEDS: DULERA 200/5 (MOMETASONE/FORMOTEROL) INHALER IH SCH (21:10)
[2023-07-01 21:35] LABS: Band Neutrophils 1 % (0-1); Blood Morphology Comment NOT SEEN (NOT SEEN); Platelet Estimate ADEQ
[2023-07-02 06:29] LABS: Absolute Lymphocytes (CBC) 0.9 K/uL (0.7-4.9); Basophils % 0.2 % (0-1.3); Eosinophils % 0.1 % (0-4.4); Hematocrit 37.4 % (39.6-49.0); Lymphocytes % 3.8 % (15.3-44.8); MCV 93.6 fL (80-100); MPV 8.2 fL (7.6-11.3); Platelets 153 thou/uL (152-406); RBC Red Blood Cell Count 3.99 M/uL (4.33-5.43)
--- NOTE | 2023-07-02 06:41 | P.PN ---
Subjective Date of Service: 07/02/23 Chief Complaint: Abdominal pain, nausea vomiting Admitted with alcoholic pancreatitis, n.p.o. abdominal pain controlled with IV analgesia Liver ultrasound shows dilated common bile duct, surgery consulted, he is on Zosyn for leukocytosis - Physical Exam General: Alert, In no apparent distress, Oriented x3 HEENT: Atraumatic, Normocephalic Neck: Supple, JVD not distended Cardiovascular: No edema, Normal pulses, Regular rate/rhythm Gastrointestinal: Normal bowel sounds, Tenderness (Epigastric, generalized abdominal tenderness, no rebound) Musculoskeletal: No clubbing, No swelling Integumentary: No breakdown, No significant lesion Neurological: Normal speech, Normal strength at 5/5 x4 extr Lymphatics: Axilla lymphadenopathy Review of Systems Per HPI Physical Examination - Vital Signs Temperature: 97.6 F Blood Pressure: 126/92 Pulse: 100 Respirations: 18 Pulse Ox (%): 95 Assessment And Plan - Plan Assessment plan Acute alcoholic pancreatitis Leukocytosis IV fluids, as needed analgesics, Trend lipase 1197, 1300, 649 Lipid panel lipid panel unremarkable Dilated common bile duct Surgery consulted, IV Zosyn Dr. Raphael Leukocytosis 06/30 17.20 increased to 24.7, 24 Zosyn added Elevated BNP BNP 604, 931 Lasix ordered twice daily Daily BNP Hypokalemia Trend electrolytes replace. 2.9, 40 p.o., 40 IV at Acute kidney improved BUN 24 creatinine 1.23 BUN 70 creatinine 19 IV fluids, monitor kidney function, gentle IV fluid EtOH use CIWA protocol, as needed Ativan Hypertension Hyperlipidemia Resume home medications, as needed antihypertensives BP 175 / 68; Pulse 60; Resp 18; Temp 98; Pulse Ox 98% ; Weight 113.4 kg; Height 5 ft. 9 v Full code Diet n.p.o. DVT Lovenox Disposition Home with spouse Discharge Plan: Home - Code Status/Comfort Care Code Status: Full Code Critical Care: No Time Spent Managing PTS Care (In Minutes): 35
[2023-07-02 06:44] LABS: Anion Gap 8.1 mEq/L (5.0-15.0); Magnesium 2.3 mg/dL (1.6-2.4); Potassium 3.1 mEq/L (3.5-5.1)
[2023-07-02] MEDS: lisinopriL 20 MG TAB PO SCH (08:30)
[2023-07-02] MEDS: POTASSIUM CL SA 10 MEQ TAB PO ONE (08:30)
[2023-07-02] MEDS: AMLODIPINE 10 MG TAB PO SCH (08:31)
[2023-07-02] MEDS: KCL 20 MEQ/100 mL IVPB 20 MEQ/100 ML BAG IV SCH (08:31)
[2023-07-02] MEDS: ALBUTEROL INHALER 200 PUFF/6.7 GM IH SCH (08:33)
[2023-07-02] MEDS ORDERED: FOLIC ACID 1 MG, MULTIVITAMINS INJ 10 ML, THIAMINE HCL 100 MG in NA CHLORIDE 0.9% 1,000 ML IV SCH (09:00)
[2023-07-02] MEDS ORDERED: NA CHLORIDE 0.9% 1,000 ML IV SCH (11:00)
--- NOTE | 2023-07-02 13:08 | RAD REPORT ---
EXAM DESCRIPTION: US - Abdomen Exam Limited - 07/02/2023 1:00 pm CLINICAL HISTORY: pancreatitis COMPARISON: Chest Abdomen Pelvis W Cont dated 06/30/2023 FINDINGS: The gallbladder demonstrates sludge but no stones. Pericholecystic fluid is present. The c ommon bile duct is dilated measuring 7 mm. The liver demonstrates fatty sparing along the gallbladder fossa. No intrahepatic biliary duct dilata tion. IMPRESSION: Distended gallbladder with sludge but no gallstones. This could be from fasting. In jefferson tion, some mild pericholecystic fluid is present which is probably free fluid from the known pancreat itis. No sonographic evidence of acute cholecystitis. The common bile duct is dilated measuring 7 millimeters. This could be further evaluated with MRCP.
[2023-07-02] MEDS: PIPER TAZO 3.375 GM in NA CHLORIDE 0.9% 100 ML IV SCH (16:03)
[2023-07-03 07:29] LABS: Absolute Basophils 0.1 K/uL (0-0.5); Absolute Eosinophils 0.2 K/uL (0-0.5); Basophils % 0.4 % (0-1.3); Eosinophils % 0.9 % (0-4.4); Hematocrit 39.6 % (39.6-49.0); Lymphocytes % 5.2 % (15.3-44.8); MCV 94.1 fL (80-100); MPV 8.6 fL (7.6-11.3); Platelets 155 thou/uL (152-406)
--- NOTE | 2023-07-03 07:31 | P.PN ---
Subjective Date of Service: 07/03/23 Chief Complaint: Abdominal pain, nausea vomiting Admitted with suspected alcoholic pancreatitis, abdominal pain controlled with IV analgesia Liver ultrasound shows dilated common bile duct, surgery consulted, he is on Zosyn for leukocytosis Will need MRCP on Tuesday - Physical Exam General: Alert, In no apparent distress, Oriented x3 HEENT: Atraumatic, Normocephalic Neck: Supple, JVD not distended Cardiovascular: No edema, Normal pulses, Regular rate/rhythm Gastrointestinal: Normal bowel sounds, Tenderness (Epigastric, generalized abdominal tenderness, no rebound) Musculoskeletal: No clubbing, No swelling Integumentary: No breakdown, No significant lesion Neurological: Normal speech, Normal strength at 5/5 x4 extr Lymphatics: Axilla lymphadenopathy Review of Systems Per HPI Physical Examination - Vital Signs Temperature: 98.8 F Blood Pressure: 175/74 Pulse: 67 Respirations: 18 Pulse Ox (%): 96 Assessment And Plan - Plan Assessment plan Acute alcoholic pancreatitis Leukocytosis IV fluids, as needed analgesics, Trend lipase 1197, 1300, 649 Lipid panel lipid panel unremarkable MRCP from Tuesday Dilated common bile duct Surgery consulted, IV Zosyn Dr. Raphael MRCP for Tuesday Leukocytosis 06/30 17.20 increased to 24.7, 24 Zosyn added Elevated BNP BNP 604, 931 Lasix ordered twice daily Daily BNP Hypokalemia Trend electrolytes replace. 2.9, 40 p.o., 40 IV at Acute kidney improved BUN 24 creatinine 1.23 BUN 70 creatinine 19 IV fluids, monitor kidney function, gentle IV fluid EtOH use CIWA protocol, as needed Ativan Hypertension Hyperlipidemia Resume home medications, as needed antihypertensives BP 175 / 68; Pulse 60; Resp 18; Temp 98; Pulse Ox 98% ; Weight 113.4 kg; Height 5 ft. 9 v Full code Diet n.p.o. DVT Lovenox Disposition Home with spouse Discharge Plan: Home - Code Status/Comfort Care Code Status: Full Code Critical Care: No Time Spent Managing PTS Care (In Minutes): 35
[2023-07-03 07:44] LABS: Anion Gap 10.3 mEq/L (5.0-15.0); Magnesium 2.5 mg/dL (1.6-2.4); Potassium 3.3 mEq/L (3.5-5.1)
[2023-07-03] MEDS: POTASSIUM CL SA 10 MEQ TAB PO ONE ×2 (08:09→22:05)
[2023-07-03 08:15] LABS: Blood Morphology Comment NOT SEEN (NOT SEEN); Platelet Estimate ADEQ; White Blood Cell Scan OK (OK)
--- NOTE | 2023-07-03 20:16 | CON ---
Date of Consultation: 07/03/2023 Reason For Service: Pancreatitis. History Of Present Illness: This is the case of an 82-year-old person comes to the hospital with rajan sea and abdominal pain and he was worked up and the result shows pancreatitis. He has a history of d rinking 6-7 beers a day over the last year. He recently moved here from [place]. He does not recal l this before. So when he came in, he was admitted to the hospital for IV hydration. Ultrasound was done, found to have some sludge and a surgical consult was obtained to rule out that as a part of pa ncreatitis, although he was admitted with alcoholic acute pancreatitis. Past Medical History: Include hypertension, hyperlipidemia, sleep apnea, COPD. Past Surgical History: Radical prostatectomy, left hip surgery, knee replacement. Social History: He used to smoke, not anymore. He used alcohol as described above. Family History: Noncontributory. Allergies: DILAUDID. Review of Systems: See HPI. 10 points otherwise unremarkable. He was advised the importance of colonoscopy. Once agai n he moved from out of town. Physical Examination: General: The patient is awake, alert. No distress. He is on the BiPAP machine. He removed it to t alk to me. His is present. HEENT: Pupils are equal and reactive. Anicteric. Neck: Supple. Chest: Clear. Abdomen: Soft and depressible. No guarding or rebound. No peritoneal signs. No Oswald sign. The patient has mild epigastric tenderness that he claimed is better than when he came here the first shayla e. Extremities: Good capillary refill. Data: Blood work is WBC count of 18.4 with hemoglobin of 13.3 and platelets not available at this mo ment. Neutrophils 76.8. He comes with an INR of 0.97, lipase of 1300. Today is 55. The abdominal ultrasound done yesterday and interpreted by Dr. Carmichael shows distended gallbladder with sludge with no gallstones as per them, although once again has some sludge. They claimed it could be just from fast ing and they believe there is some pericholecystic fluid that may be from the pancreatitis he is alre mac having. The common bile duct is 7 mm. An MRCP recommended. CAT scan of abdomen and pelvis, thi s was done 06/30/2023, shows moderate pancreatitis. Assessment: This is an 82-year-old patient with pancreatitis of unknown origin. He is known to have history of alcohol use. Will get an MRCP tomorrow to make sure that biliary system at least has no stones there that may be contributing to his problem. In the meantime, we advised him the importance of alcohol cessation. We also explained to him the importance of low fat diet and losing some weigh t. He does have an umbilical hernia that may be repaired one moment but he has not repaired that yet since he was told one time during the surgery before that they had difficult time during the anesthe grace whatever that means since he is coming from [place] and we do not have the records on him at thi s moment. That may be an issue. We suggest gallbladder surgery for him. The benefits, alternatives , and risks of cholecystectomy for sludge were discussed with the patient which include, but not limi trinh to infection, bleeding, and obviously respiratory issues and damage to adjacent structures, michele docholithiasis, even pancreatitis, SC, even , so let us see if we can define a little bit better the cause of his pancreatitis and if it is not gallbladder then electively we will address that issu e including also his hernia repair. In the meantime, it is important he does his colonoscopy and also no heavy lifting and also losing some weight. YENNY/HELEN Voice ID: [id number] Report ID: [id number]
[2023-07-03] MEDS: ESZOPICLONE 1 MG TAB PO PRN (23:11)
[2023-07-04 04:44] LABS: Absolute Basophils 0.1 K/uL (0-0.5); Absolute Eosinophils 0.2 K/uL (0-0.5); Absolute Lymphocytes (CBC) 0.9 K/uL (0.7-4.9); Basophils % 0.4 % (0-1.3); Eosinophils % 1.4 % (0-4.4); Hematocrit 35.7 % (39.6-49.0); Lymphocytes % 5.9 % (15.3-44.8); MCV 93.8 fL (80-100); MPV 8.8 fL (7.6-11.3); Platelets 156 thou/uL (152-406)
[2023-07-04 04:58] LABS: Anion Gap 8.5 mEq/L (5.0-15.0); Magnesium 2.4 mg/dL (1.6-2.4); Potassium 3.5 mEq/L (3.5-5.1)
[2023-07-04 05:04] LABS: Albumin 2.3 g/dL (3.4-5.0); Albumin/Globulin Ratio 0.6 (1.1-1.8); Bilirubin Direct 0.4 mg/dL (0-0.2); Bilirubin Indirect, Calculated 0.7 mg/dL (0.2-0.8); Bilirubin Total 1.1 mg/dL (0.2-1.0); Globulin 3.8 g/dL (2.3-3.5); Protein, Total 6.1 g/dL (6.4-8.2)
[2023-07-04] MEDS: KCL 20 MEQ/100 mL IVPB 20 MEQ/100 ML BAG IV SCH (05:56)
--- NOTE | 2023-07-04 08:35 | RAD REPORT ---
EXAM DESCRIPTION: MRI - Cholangiogram - 07/04/2023 7:59 am CLINICAL HISTORY: pacnreatitis Abdominal pain COMPARISON: Abdomen Exam Limited dated 07/02/2023; Chest Abdomen Pelvis W Cont dated 06/30/2023 FINDINGS: Three-dimensional MRCP was performed using maximum intensity projection reconstruction on the same work station. No intrahepatic biliary tree dilatation is seen. The common bile duct is normal caliber without evide nce of retained stone, stricture or mass. The pancreatic duct is not pathologically dilated. There is moderate edema in the pancreatic head noted. Distended gallbladder noted without stones visible. Small bilateral pleural effusions are present. IMPRESSION: No pathologic biliary tree dilatation is seen. Distended gallbladder noted. Edema is present in the pancreatic head region most compatible with pancreatitis.
[2023-07-04 09:20] VITALS: O2SAT 99
--- NOTE | 2023-07-04 11:00 | ECHO ---
HEIGHT: 5 ft 9 in WEIGHT: 248 lb 9.6 oz DATE OF STUDY: 07/01/[address]: Stormy Garcia MD 2-DIMENSIONAL: YES M.MODE: YES DOPPLER: YES COLOR FLOW: YES TDS: YES PORTABLE: YES DEFINITY: NO BUBBLE STUDY: NO DIAGNOSIS: CONGESTIVE HEART FAILURE CARDIAC HISTORY: CATHERIZATION: SURGERY: PROSTHETIC VALVE: PACEMAKER: MEASUREMENTS (cm) DIASTOLIC (NORMALS) SYSTOLIC (NORMALS) IVSd 1.1 (0.6-1.2) LA Diam 4.6 (1.9-4.0) LVEF 63% LVIDd 3.6 (3.5-5.7) LVIDs 2.4 (2.0-3.5) %FS 33% LVPWd 1.0 (0.6-1.2) Ao Diam 3.2 (2.0-3.7) 2 DIMENSIONAL ASSESSMENT: RIGHT ATRIUM: NORMAL LEFT ATRIUM: NORMAL RIGHT VENTRICLE: NORMLA LEFT VENTRICLE: NORMAL TRICUSPID VALVE: TRACE TRICUSPID REGURGITATION MITRAL VALVE: NORMAL PULMONIC VALVE: NORMAL AORTIC VALVE: NORMAL PERICARDIAL EFFUSION: NONE AORTIC ROOT: NORMAL LEFT VENTRICULAR WALL MOTION: NORMAL DOPPLER/COLOR FLOW: GRADE I DIASTOLIC DYSFUNCTION. COMMENTS: 1. NORMAL LEFT VENTRICULAR SYSTOLIC FUNCTION. LEFT VENTRICULAR EJECTION FRACTION 55-60%. NORMAL DIASTOLIC FUNCTION. 2. GRADE I DIASTOLIC DYSFUNCTION. TECHNOLOGIST: JO-ANN BEST
--- NOTE | 2023-07-04 12:02 | P.DS ---
Admission Date: 06/30/23 Discharge Date: 07/04/23 Disposition: ROUTINE DISCHARGE Discharge Condition: GOOD Reason for Admission: Abdominal pain, nausea vomiting Vital Signs/Physical Exam: Temp Pulse Resp BP Pulse Ox 98.4 F 80 19 160/65 H 99 07/04/23 08:00 07/04/23 08:57 07/04/23 08:00 07/04/23 08:00 07/04/23 08:57 General: In no apparent distress, Oriented x3 HEENT: Atraumatic, Normocephalic Neck: Supple Respiratory: Clear to auscultation bilaterally, Normal air movement Cardiovascular: No edema, Normal pulses, Regular rate/rhythm Capillary refill: <2 Seconds Gastrointestinal: Soft and benign Musculoskeletal: No clubbing, No swelling Integumentary: No rashes Neurological: Normal speech Lymphatics: No axilla or inguinal lymphadenopathy External genitalia: Deferred Rectal: Deferred Laboratory Data at Discharge: WBC 14.80 thou/uL (4.3-10.9) H 07/04/23 04:15 Hgb 12.1 g/dL (13.6-17.9) L D 07/04/23 04:15 Hct 35.7 % (39.6-49.0) L 07/04/23 04:15 Plt Count 156 thou/uL (152-406) 07/04/23 04:15 PT 10.7 SECONDS (9.5-12.5) 06/30/23 06:45 INR 0.97 06/30/23 06:45 Sodium 137 mEq/L (136-145) 07/04/23 04:15 Potassium 3.5 mEq/L (3.5-5.1) 07/04/23 04:15 BUN 17 mg/dL (7-18) 07/04/23 04:15 Creatinine 0.76 mg/dL (0.70-1.30) 07/04/23 04:15 Glucose 115 mg/dL (74-106) H 07/04/23 04:15 Magnesium 2.4 mg/dL (1.6-2.4) 07/04/23 04:15 Total Bilirubin 1.1 mg/dL (0.2-1.0) H 07/04/23 04:15 AST 63 U/L (15-37) H 07/04/23 04:15 ALT 70 U/L (16-61) H 07/04/23 04:15 Alkaline Phosphatase 95 U/L (45-117) 07/04/23 04:15 Triglycerides 133 mg/dL (<150) 06/30/23 07:20 Cholesterol 149 mg/dL (<200) 06/30/23 07:20 HDL Cholesterol 45 mg/dL (40-60) 06/30/23 07:20 Cholesterol/HDL Ratio 3.31 06/30/23 07:20 Lipase 43 U/L (13-75) 07/04/23 04:15 Home Medications: Budesonide/Formoterol Fumarate [Symbicort 160-4.5 Mcg Inhaler] 2 puff IH BID 06/30/23 Duloxetine HCl 30 mg PO DAILY 06/30/23 Hydrochlorothiazide 50 mg PO DAILY 06/30/23 Melatonin 5 mg PO BEDTIME 06/30/23 Simvastatin 40 mg PO BEDTIME 06/30/23 Lisinopril [Zestril] 40 mg PO DAILY 07/01/23 Metoprolol Tartrate [Lopressor*] 50 mg PO BID 6AM 6PM tab 07/04/23 Mometasone/Formoterol [Dulera 200 Mcg/5 Mcg Inhaler] 1 puff IH BID inhaler 07/04/23 Pantoprazole Sodium [Protonix] 40 mg PO DAILY #20 07/04/23 New Medications: Pantoprazole Sodium [Protonix] 40 mg PO DAILY #20 Physician Discharge Instructions: Okay to DC IV and DC home Follow-up with primary care provider in 1 to 2 weeks Follow-up with gastroenterology in 1 to 2-week Please call the inpatient unit for any questions or concerns regarding hospital stay Return to the ER for worsening symptoms Diet: Low fat Activity: Ad breonna Followup: MARNI URIOSTEGUI [Primary Care Provider] -
[2023-07-04 12:43] VITALS: BP 149/56; TEMP 99.2
== END 2023-07-04 15:42 | disposition home or self-care (01) | DRG 439 ==
LOC: ER 06:06 → ERHOLD 08:58 → 2ND 19:19
PROVIDERS: ADMIT Hospitalist; ATTEND Hospitalist
PROC: 5A09557 Assistance with Respiratory Ventilation, Greater than 96 Consecutive Hours, Continuous Positive Airway Pressure (ICD-10-PCS; principal; 2023-06-30)
DX: K85.20 Alcohol induced acute pancreatitis without necrosis or infection (principal); N17.9 Acute kidney failure, unspecified; I10 Essential (primary) hypertension; E87.6 Hypokalemia; K83.8 Other specified diseases of biliary tract; G47.33 Obstructive sleep apnea (adult) (pediatric); F10.10 Alcohol abuse, uncomplicated; E78.00 Pure hypercholesterolemia, unspecified; J44.9 Chronic obstructive pulmonary disease, unspecified; Z88.5 Allergy status to narcotic agent; Z90.79 Acquired absence of other genital organ(s); Z96.651 Presence of right artificial knee joint; Z96.642 Presence of left artificial hip joint; Z87.891 Personal history of nicotine dependence; Z79.899 Other long term (current) drug therapy
CPT/HCPCS: 36415; 71045; 71260; 74177; 74181; 76705; 80048; 80061; 80076; 81001; 82077; 83690; 83735; 83880; 84132; 84484; 85025; 85610; 86140; 93005; 93306; 99285; J0692; J1940; J2405; J2543; J2765; J3411; J3480; J3535; J7030; Q9967

== ENCOUNTER 2024-06-27 06:00 | Day surgery (SDC) | payer OTHER ==
[2024-06-21 10:45] LABS: Absolute Basophils 0.1 K/uL (0-0.5); Absolute Eosinophils 0.2 K/uL (0-0.5); Absolute Lymphocytes (CBC) 1.9 K/uL (0.7-4.9); Absolute Neutrophil 5.2 K/uL (1.8-8.0); Basophils % 0.6 % (0-1.3); Eosinophils % 2.4 % (0-4.4); Hemoglobin 14.5 g/dL (13.6-17.9); Lymphocytes % 22.7 % (15.3-44.8); MCH 31.4 pg (27.0-35.0); MCHC 34.5 g/dL (32.0-36.0); MCV 91.2 fL (80-100); MPV 9.6 fL (7.6-11.3); Monocytes % 12.4 % (3.3-12.3); Neutrophils % 61.9 % (41.7-73.7); Platelets 178 thou/uL (152-406); RBC Red Blood Cell Count 4.61 M/uL (4.33-5.43)
[2024-06-21 10:55] LABS: PT Prothrombin Time 10.9 SECONDS (10.0-13.0); PTT, Activated Partial Thromb 23.3 SECONDS (24.3-36.9); Protime INR 0.95
[2024-06-21 11:03] LABS: Anion Gap 10.1 mEq/L (5.0-15.0); Potassium 4.1 mEq/L (3.5-5.1)
--- NOTE | 2024-06-21 13:05 | RAD REPORT ---
EXAMINATION: TWO VIEW CHEST XR CLINICAL INDICATION: Male, 83 years old. [facility] Pre-op pending knee arthroplasty. Hypertension TECHNIQUE: 2 view radiographs of the chest were performed. COMPARISON: 11/30/2023 FINDINGS: The lungs are well inflated and clear. No pneumothorax or sizable effusion. The heart is normal in si ze. Mediastinal contours are unremarkable. IMPRESSION: No acute or significant abnormalities.
[2024-06-27] MEDS: MIDAZOLAM HCL 2 MG/2 ML INJ ONE (06:26)
[2024-06-27] MEDS: LIDOCAINE 1% MPF 5 ML VIAL ONE (06:26)
[2024-06-27] MEDS: FENTANYL CITR 100 MCG/2 ML ONE (06:26)
[2024-06-27] MEDS: BUPIVACAINE 0.25% PF 30 ML VIAL ONE (06:26)
[2024-06-27] MEDS: BUPIVACAINE 0.5% PF 10 ML VIAL ONE (06:26)
[2024-06-27] MEDS: EPINEPHRINE 1 MG/ML VIAL ONE (06:27)
[2024-06-27] MEDS: dexAMETHasone 10 MG/ML VIAL ONE (06:27)
[2024-06-27] MEDS: CELECOXIB 100 MG CAPSULE ONE (06:40)
[2024-06-27] MEDS: Oxycodone HCl/Acetaminophen 5/325 MG TAB ONE (06:40)
[2024-06-27] MEDS: Ringers Lactate 1,000 ML IV ONE (06:40)
[2024-06-27] MEDS: ACETAMINOPHEN 500 MG TAB ONE (06:40)
[2024-06-27] MEDS: GABAPENTIN 100 MG CAP ONE (06:41)
[2024-06-27] MEDS: MAGNESIUM SULFATE 1 gm IVPB 1 GM/100 ML BAG IV ONE (06:43)
[2024-06-27] MEDS: DEXMEDETOMIDINE HCL 200 MCG/2 ML VIAL ONE (06:43)
[2024-06-27] MEDS: TRANEXAMIC ACID 1,000 MG/10 ML VIAL IV ONE (07:29)
[2024-06-27] MEDS ORDERED: LIDOCAINE 2% MPF 5 ML VIAL ONE ×2 (07:58→08:08)
[2024-06-27] MEDS ORDERED: ONDANSETRON 4 MG/2 ML VIAL ONE (07:58)
[2024-06-27] MEDS ORDERED: KETAMINE HCL IN 0.9 % NACL 50 MG/5 ML SYRINGE IV ONE (07:58)
[2024-06-27] MEDS: CEFAZOLIN SODIUM 2 GM/VIAL ONE (08:00)
[2024-06-27] MEDS ORDERED: propofoL 200 MG/20 ML VIAL IV ONE (08:09)
[2024-06-27] MEDS ORDERED: EPHEDRINE SULF 50 MG/ML VIAL ONE (08:21)
[2024-06-27] MEDS ORDERED: dexAMETHasone 10 MG/ML VIAL ONE (09:10)
[2024-06-27] MEDS ORDERED: DOCUSATE NA 100 MG CAP PO PRN (11:16)
[2024-06-27] MEDS ORDERED: ONDANSETRON 4 MG/2 ML VIAL IV PRN (11:16)
[2024-06-27] MEDS ORDERED: ACETAMINOPHEN 325 MG TABLET PO PRN (11:16)
--- NOTE | 2024-06-27 11:16 | P.BOP ---
Preoperative diagnosis: left knee osteoarthritis Postoperative diagnosis: same Primary procedure: left total knee arthroplasty Telephoto Engineer: NONE,NONE Estimated blood loss: 40 cc Specimen: left knee bone remnants Findings: see dictation Anesthesia: General Complications: None Implants: Biomet Yandel Persona 9 CR femur, F tibia, 11 CR poly, 32 patella Fluids & blood products: per anesthesia record; TT: 90 mins @ 300 mmHg Transferred to: Recovery Room Condition: Good
[2024-06-27 12:20] LABS: Hematocrit 38.3 % (39.6-49.0); Hemoglobin 13.1 g/dL (13.6-17.9)
[2024-06-27 12:31] VITALS: O2SAT 96
[2024-06-27] MEDS: HYDROCODONE/APAP 7.5/325 MG TAB PO PRN (13:54)
--- NOTE | 2024-06-27 14:08 | RAD REPORT ---
EXAM: XR Knee Left 2 View HISTORY: [facility] Post Op COMPARISON: None TECHNIQUE: 3 views of the left knee were obtained. FINDINGS: Postsurgical changes of the lateral knee arthroplasty. Components in satisfactory alignment . Adjacent postsurgical changes in the soft tissues with skin debbie. IMPRESSION: Expected postsurgical changes following left knee arthroplasty.
[2024-06-27 14:11] VITALS: BMI 36.6
--- NOTE | 2024-06-27 14:25 | P.CNS ---
Date of Consult: 06/27/24 Reason for Consult: Medical management Chief Complaint: Left total knee History of Present Illness: Patient is an 83yo who was admitted for left total knee Allergies hydromorphone [From Dilaudid] Adverse Reaction (Intermediate, Verified 06/27/24 08:50) HALLUCINATIONS Home Medications: Budesonide/Formoterol Fumarate [Symbicort 160-4.5 Mcg Inhaler] 2 puff IH BID 06/30/23 Duloxetine HCl 30 mg PO DAILY 06/30/23 Melatonin 5 mg PO BEDTIME 06/30/23 Simvastatin 40 mg PO BEDTIME 06/30/23 lisinopriL [Zestril] 40 mg PO DAILY 07/01/23 Amlodipine [Norvasc*] 10 mg PO DAILY #30 tab 07/04/23 Metoprolol Tartrate [Lopressor] 25 mg PO BID #60 tab 07/04/23 Albuterol Sulfate [Proair Respiclick] 90 mcg IH BID 06/21/24 Cetirizine HCl [Allergy Relief] 10 mg PO BID 06/21/24 Vit C/E/Zn/Coppr/Lutein/Zeaxan [Preservision Areds 2 Softgel] 1 each PO BID 06/21/24 - Past Medical/Surgical History Diabetic: No -: prostate cancer -: COPD -: LAURIE -: hyperlipidemia -: penile implant x2 -: radical prostatectomy -: right total knee -: left hip arthroplasty -: right shoulder rotator cuff repair -: left total knee arthroplasty - Family History Father Medical History: Cancer, Other (see notes) Notes: lung cancer Mother Medical History: Cancer, Other (see notes) Notes: breast cancer - Social History Smoking Status: Former smoker Alcohol use: No CD- Drugs: No Caffeine use: Yes Place of Residence: Home Review of Systems 10-point ROS is otherwise unremarkable Physical Examination Temp Pulse Resp BP Pulse Ox 97.3 F 54 16 117/51 L 98 06/27/24 12:30 06/27/24 12:30 06/27/24 12:30 06/27/24 12:30 06/27/24 06:40 General: Alert, In no apparent distress, Oriented x3 HEENT: Atraumatic, PERRLA, Mucous membr. moist/pink, EOMI, Sclerae nonicteric Neck: Supple, 2+ carotid pulse no bruit, No LAD, Without JVD or thyroid abnormality Respiratory: Clear to auscultation bilaterally, Normal air movement Cardiovascular: Regular rate/rhythm, Normal S1 S2, No murmurs Gastrointestinal: Normal bowel sounds, Soft and benign, Non-distended, No tenderness Musculoskeletal: No clubbing, No swelling, No tenderness Neurological: Sensation intact, Cranial nerves 3-12 intact Laboratory Data (last 24 hrs) 06/27/24 12:11 Hgb 13.1 L Hct 38.3 L - Problems (1) Status post total left knee replacement Current Visit: Yes Status: Acute (2) COPD (chronic obstructive pulmonary disease) Current Visit: Yes Status: Acute (3) History of prostate cancer Current Visit: Yes Status: Acute (4) Hyperlipidemia Current Visit: Yes Status: Acute Critical Care: No Time Spent Managing Pts care (In Minutes): 35
[2024-06-27] MEDS: TRAMADOL HCL 50 MG TAB PO PRN (16:56)
[2024-06-27] MEDS: CEFAZOLIN SODIUM 2 GM in NA CHLORIDE 0.9% 100 ML IVPB SCH (16:57)
[2024-06-27] MEDS: ALBUTEROL SULFATE 90 MCG IH SCH (21:00)
[2024-06-27] MEDS ORDERED: [UNRECOGNIZED DRUG - REMARK] PO SCH (21:00)
[2024-06-27] MEDS ORDERED: HOME MED 1 EA UNK (Simvastatin [Simvastatin] 40 MG Tablet) PO SCH (21:00)
[2024-06-27] MEDS: BUDESONIDE IH SCH (21:00)
[2024-06-27] MEDS: FORMOTEROL FUMARATE IH SCH (21:00)
[2024-06-27] MEDS: METOPROLOL TAR 25 MG TAB PO SCH (21:25)
[2024-06-27] MEDS: ATORVASTATIN 20 MG TAB PO SCH (21:25)
[2024-06-27] MEDS: MELATONIN 5 MG TABLET PO SCH (21:33)
[2024-06-28 05:43] LABS: Hematocrit 35.4 % (39.6-49.0)
[2024-06-28] MEDS: ENOXAPARIN 30 MG/0.3 ML SQ SCH (05:44)
[2024-06-28] MEDS: CELECOXIB 100 MG CAPSULE PO SCH (08:36)
[2024-06-28] MEDS: CETIRIZINE HCL 5 MG TABLET PO SCH (08:36)
[2024-06-28] MEDS: DULOXETINE 30 MG CAP PO SCH (08:37)
[2024-06-28] MEDS: AMLODIPINE 10 MG TAB PO SCH (08:37)
[2024-06-28] MEDS: lisinopriL 20 MG TAB PO SCH (08:38)
[2024-06-28 08:44] VITALS: BP 138/55
[2024-06-28] MEDS ORDERED: HOME MED 1 EA UNK (Lisinopril [Zestril] 40 MG Tablet) PO SCH (09:00)
[2024-06-28 09:31] VITALS: TEMP 99.1
== END 2024-06-28 10:33 | disposition home health service (06) ==
LOC: OR 06:00 → 2ND 11:16 → OR 06-28 10:33
PROVIDERS: ADMIT Orthopaedic Surgery Sports Medicine; ATTEND Orthopaedic Surgery Sports Medicine
PROC: 0SRD0J9 Replacement of Left Knee Joint with Synthetic Substitute, Cemented, Open Approach (ICD-10-PCS; principal; 2024-06-27 08:00)
DX: M17.12 Unilateral primary osteoarthritis, left knee (principal)
CPT/HCPCS: 85025; 80048; 36415 ×2; 85610; 88305; 88311; 85730; 85018; 85014; 71046; 73560; 97116; 97139; 97161; 94010; 27447; C1776; J3475; J2704; J2003 ×3; J2250; J3010; J1100 ×2; J0171; J2405; J7120; J1650